=== PATIENT | male | born 1945 | race Caucasian/White ===

== ENCOUNTER 2018-10-08 15:41 | Emergency (ER) | payer BC, MEDICARE, OTHER ==
[2018-10-08] MEDS ORDERED: Lidocaine 1% w/Epinephrine 1:100K 20 ML VIAL ONE (16:11)
[2018-10-08] MEDS ORDERED: Tranexamic Acid 1,000 MG/10 ML VIAL SSP SCH (17:30)
[2018-10-08] MEDS ORDERED: Tranexamic Acid 1,000 MG/10 ML VIAL ONE (17:33)
== END 2018-10-08 17:51 | disposition home or self-care (01) ==
LOC: ERS 15:41
DX: S01.512A Laceration without foreign body of oral cavity, initial encounter (principal); E78.5 Hyperlipidemia, unspecified; I10 Essential (primary) hypertension; Z79.82 Long term (current) use of aspirin; Z79.899 Other long term (current) drug therapy; X58.XXXA Exposure to other specified factors, initial encounter
CPT/HCPCS: 99283; J2001

== ENCOUNTER 2019-08-24 10:57 | Inpatient (IN) | payer MEDICARE, BC, OTHER ==
[2019-08-24] MEDS ORDERED: Adacel (T-DAP) 0.5 ML SYRINGE ONE (11:25)
--- NOTE | 2019-08-24 11:37 | RAD ---
Exam:2 views left elbow HISTORY: Pain. Trauma. Fall. COMPARISON: None FINDINGS: No fracture. No cortical irregularity. No periosteal reaction. Joint spaces are preserved. No joint effusion. IMPRESSION: No fracture.
[2019-08-24] MEDS ORDERED: Ondansetron PF 4 MG/2 ML Vial ONE (11:44)
--- NOTE | 2019-08-24 11:47 | CT ---
Exam: CT cervical spine without contrast HISTORY: Trauma. Pain. COMPARISON: None FINDINGS: No craniocervical dissociation. Appropriate alignment of the lateral masses of C1 and C2. Intact odon toid process Appropriate alignment of the facets. Straightening of normal cervical lordosis may be due to patient position, muscle spasm or cervical co llar. Grade 1 anterolisthesis of C4 upon C5 likely due to degenerative changes of the facets. Soft tissue neck structures: No mass, lymphadenopathy or hematoma. No prevertebral soft tissue swelli ng. Upper mediastinum and lung apices: Unremarkable Central spinal canal: Varying degrees of central canal stenosis and neural foraminal narrowing on the basis of degenerative change. Vertebral bodies: Cervical spine vertebral body height is maintained. No fracture. IMPRESSION: 1. No fracture 2. Straightening of normal cervical lordosis as detailed above. If there is concern for ligamentous i njury, consider MRI. 3. Grade 1 anterolisthesis of C3-C4 upon C5, likely on the basis of facet arthropathy.
--- NOTE | 2019-08-24 11:50 | CT ---
Exam: Brain CT without IV contrast: HISTORY: Injury following a fall FINDINGS: There is some patchy subarachnoid hemorrhage involving the right temporal lobe region, primarily. No mass effect or midline shift. Left periorbital soft tissue swelling with abnormal fluid density within the left maxillary sinus with concern for possible orbital floor fracture. Minimal mucosal dis ease in the left sphenoid sinus. Several very tiny questionable air densities on the right and left supraorbital region, I cannot totally exclude the possibility of some tiny pneumocephalus. Temporal b ones appear intact. IMPRESSION: Right-sided primarily temporal subarachnoid hemorrhage. No mass or midline shift. Left periorbital so ft tissue swelling with possible orbital floor fracture with fluid in the left maxillary sinus as well as sinus mucosal change. Questionable possible tiny air densities overlying the right and left s upraorbital regions. Findings were discussed with Dr. Parson at 11:40 AM CODE CR
[2019-08-24] MEDS ORDERED: ISOVUE-370 76%-LOCM 1 ML ONE (12:00)
[2019-08-24 12:11] LABS: #Eosinphils 0.2 thou/uL (0.0-0.7); #Lymphocytes 1.8 thou/uL (1.20-3.40); #Monocytes 0.6 thou/uL (0.11-0.59); %Basophils 0.4 % (0.0-1.0); %Eosinophils 2.1 % (0.0-10.0); %Lymphocytes 15.3 % (21.0-51.0); %Monocytes 5.5 % (0.0-10.0); %Neutrophils 76.8 % (42.0-75.0); Hemoglobin 13.7 g/dL (14.0-18.0); Mean Corpuscular HGB CONC 35.4 g/dL (32.0-36.0); Mean Corpuscular Hemoglobin 33.1 pg (27.0-31.0); Mean Corpuscular Volume 93.6 fL (78.0-98.0); Mean Platelet Volume 8.2 fL (7.4-10.4); Platelet Count 327 thou/uL (130-400); RBC Distribution Width 13.4 % (11.5-14.5); Red Blood Cell (RBC) Count 4.13 mill/uL (4.70-6.10); White Blood Cell (WBC) Count 11.7 thou/uL (4.8-10.8)
--- NOTE | 2019-08-24 12:13 | RAD ---
PORTABLE CHEST 1 VIEW: Date: 08/24/19 Time: 1204 hours HISTORY: Trauma, unwitnessed fall, with loss of consciousness. FINDINGS: Comparison made with exam of 05/11/14. The heart size is normal. The aorta is tortuous. The lungs are well expanded without lobar consolidat ion, pneumothoraces, or pleural effusions. There are degenerative changes in the left shoulder joint. Postop changes of right rotator cuff repair are noted. IMPRESSION: No acute process. POS: TPC
--- NOTE | 2019-08-24 12:15 | CT ---
CT FACIAL BONES WITHOUT CONTRAST: HISTORY: Fall. Facial injury. FINDINGS: A tiny pocket of gas along the inner table of the right temporal bone is again demonstrated and florence r detailed on recent CT head. There are also tiny pockets of gas at the posterior apex of each orbit, possibly within veins or pneumatized osseous structure. No adjacent fracture is apparent. There is a tiny pocket of gas along the medial aspect of the left orbit, immediately adjacent to the lamina papyracea. Small adjacent soft tissue/fluid collection may represent hematoma. No displaced fr actures are apparent. Cortical irregularity of the base of the nasal bone with slight leftward deviation. Opacification of the left maxillary sinus is present with expansion into the left nasal passage. Hype rdensity suggests chronic mucosal disease. Postoperative changes are suspected. Mild mucosal thickeni ng of the right maxillary sinus. There is effacement of the left posterior pharynx at the level of the tonsils with a somewhat mass li ke appearance at the location of the left tonsil. IMPRESSION: 1. Evidence of disruption of the left lamina papyracea with a tiny pocket of medial orbit gas and sma ll hematoma. The osseous fracture is not directly visualized. Tiny pockets of gas within the superior aspect of each orbital apex. This could be venous rather than posttraumatic. No fractures are apparent at this level. 2. Mildly displaced nasal bone fracture, age indeterminate. 3. Mass like abnormality at the level of the left tonsil with effacement of the posterior pharyngeal airway. Please consider direct visualization of the posterior pharynx and eventual CT of the neck wit h intravenous contrast for better evaluation. 4. Atherosclerosis. POS: TPC
[2019-08-24 12:17] LABS: Prothrombin Time 13.4 SEC (12.0-14.7)
[2019-08-24 12:19] LABS: PTT 22.3 SEC (22.9-36.1)
[2019-08-24] MEDS ORDERED: Acetaminophen 500 MG TAB ONE (12:48)
[2019-08-24 13:06] LABS: ALT (SGPT) 25 U/L (8-55); AST (SGOT) 31 U/L (5-34); Albumin 4.4 g/dL (3.4-4.8); Alkaline Phosphatase 91 U/L (40-110); Anion Gap 13 mmol/L (10-20); BUN (Urea Nitrogen) 23 mg/dL (8.4-25.7); Bilirubin, Total 0.7 mg/dL (0.2-1.2); CK (CPK) 232 U/L (30-200); Calc. Creatinine Clearance 0 mL/min (70-130); Calcium 8.8 mg/dL (7.8-10.44); Carbon Dioxide 26 mmol/L (23-31); Chloride 107 mmol/L (98-107); Estimated GFR-MDRD 84; Glucose 127 mg/dL (83-110); Potassium 3.7 mmol/L (3.5-5.1); Protein, Total 6.4 g/dL (5.8-8.1); Sodium 142 mmol/L (136-145)
--- NOTE | 2019-08-24 13:47 | RAD ---
LEFT SHOULDER 3 VIEWS: Date: 08/24/19 HISTORY: Fall with injury. FINDINGS: There are prominent degenerative changes at the shoulder with spurring from the humeral head. There i s a linear lucency seen through the head of the humerus, which is indeterminate. I cannot completely exclude fracture, although there is no evidence of displacement. No definite cortical disruption is s een. The AC joint is normally aligned. IMPRESSION: Prominent degenerative changes of glenohumeral joint with spurring from the humeral head. A linear heather cency is seen through the humeral head and I cannot completely exclude a nondisplaced fracture. Consi anton further evaluation with CT or MRI. POS: OFF
--- NOTE | 2019-08-24 13:53 | HP ---
REQUESTING PHYSICIAN: Dr. Parson. ATTENDING SURGEON: Dr. Castillo. CONSULTATIONS: Neurosurgery, Dr. Reddy. HISTORY OF PRESENT ILLNESS: The patient is a 73-year-old man, who was moving things from his upstairs room when he was coming on the stairs and lost his footing and fell anywhere from 3 to 5 stairs hitting the left side of his head. The patient had loss of consciousness from 1 to 5 minutes. He was brought to the emergency department by ground EMS, where he underwent evaluation and examination and was noted to have a right-sided primarily temporal subarachnoid hemorrhage, which time we were asked to evaluate the patient for admission and obtain neurosurgical consultation. The patient's current chief complaint is headache. He denies nausea, vomiting, or dizziness. The patient denies any syncopal-type symptoms prior to his fall. He relates it to just losing his footing. ALLERGIES: NONE. CURRENT MEDICATIONS: 1. Baby aspirin 1 daily. 2. Celebrex. 3. Amlodipine. 4. Atorvastatin. PAST MEDICAL HISTORY: 1. Hypertension. 2. Hyperlipidemia. PAST SURGICAL HISTORY: 1. Eyelid repair. 2. Left inguinal hernia repair. SOCIAL HISTORY: The patient lives independently at home with his spouse. He is retired from [employer]. He smoked greater than 20 years ago. He drinks 1 to 2 drinks every 2 to 3 days. He denies daily drinking. REVIEW OF SYSTEMS: A 10-point review of systems is negative unless otherwise stated. PHYSICAL EXAMINATION: VITAL SIGNS: Blood pressure 170/75, heart rate 78, respirations 17, oxygen saturation 98% on room air, temperature is 98.3. GENERAL: The patient is resting comfortably in bed. He is awake, alert, and oriented. He is repetitive in some of his questions. Rani Coma Scale is 15. HEENT: Head is normocephalic. The patient has abrasion and contusion to left side of his forehead. Eyes; extraocular motion is intact. PERRLA bilaterally. The patient has lateral periorbital ecchymosis on the left eye. Ears are atraumatic without discharge. Nose; there is dry blood in both nares. Oropharynx is clear. NECK: Nontender. Trachea is midline. No JVD. The patient was able to be cleared out of his pre-hospital collar. CHEST: Clear to auscultation with good inspiratory and expiratory effort. HEART: Regular rate and rhythm. ABDOMEN: Soft, flat, and nontender with active bowel sounds. EXTREMITIES: Neurovascularly intact x4. Left upper extremity has skin tears noted to the left lateral proximal forearm area. This is just distal to his elbow. The patient has tenderness to palpation to the left anterior shoulder. He does have good range of motion. His clavicle appears intact. BACK: Atraumatic and nontender. LABORATORY FINDINGS: White blood cell count 11.7, hemoglobin 13.7, hematocrit 38.7, platelets 327. Troponin is less than 0.010. PT 13.4, INR 1.0, PTT 22.3. The remainder of his chemistries are pending. RADIOGRAPHIC REPORT: CT of the brain without contrast shows a right-sided primarily temporal subarachnoid hemorrhage. There is no mass or midline shift. Left soft tissue swelling in the periorbital region. CT of the C-spine without contrast shows no fracture. No other acute findings are noted. CT of the face without contrast shows: 1. Evidence of disruption of the left lamina papyracea with a tiny pocket of medial orbital gas and small hematoma. 2. Mild displaced nasal bone fracture, age indeterminate. AP chest x-ray shows no acute process. Views of the left elbow show no fracture. ASSESSMENT: 1. Status post fall. 2. Right-sided subarachnoid hemorrhage. 3. Left shoulder contusion. 4. Skin tear, left upper extremity. 5. History of hypertension and hyperlipidemia. PLAN: Plan will be to admit the patient to the [facility] for serial neuro exams. Per consultation with Neurosurgery, he will have q.2-hour neuro checks with a repeat head CT in the morning or sooner as needed. The patient will allow to have clear liquid diet and nonnarcotic pain medication. The evaluation, examination, laboratory, and radiographic findings were discussed with Dr. Castillo after this dictation. Job ID: [id number]
[2019-08-24] MEDS ORDERED: Ondansetron ODT 4 MG TAB PO PRN (14:20)
[2019-08-24] MEDS ORDERED: Cyclobenzaprine 10 MG TAB PO PRN (14:20)
[2019-08-24] MEDS ORDERED: hydrALAZINE 20 MG/ML VIAL SLOW IVP PRN (14:20)
[2019-08-24] MEDS ORDERED: Dextrose 50% Abboject 50 ML SYRINGE SLOW IVP PRN (14:20)
[2019-08-24] MEDS ORDERED: traMADol HCl 50 MG TAB PO PRN (14:20)
[2019-08-24] MEDS ORDERED: Dextrose 5% in Water 1,000 ML IV PRN (14:20)
[2019-08-24] MEDS ORDERED: Ondansetron PF 4 MG/2 ML Vial IVP PRN (14:20)
--- NOTE | 2019-08-24 15:20 | CT ---
Exam: Postcontrast soft tissue neck CT HISTORY: Evaluate left peritonsillar mass. Status post trauma and fall. COMPARISON: None Correlation: Facial bone CT 08/07/2019 FINDINGS: There is evidence of left periorbital and left facial/scalp post traumatic hematoma. There is hyperattenuation of the left maxillary sinus. Symmetric attenuation the optic nerves and ocu lar rectus muscles There is evidence of paranasal sinus disc disease as described in the maxillofacial CT report There is stranding of the fat in the left piriform. Left parapharyngeal fat. There appears to be sym metric attenuation the adjacent pterygoid muscles. Stranding of the fat is of uncertain etiology. Evaluation is limited due to motion and dental amalgam artifact. No obvious masses within the oral ca vity. Midline fatty raphae of the tongue is preserved. Epiglottis has a normal caliber. Preepiglottic fat is preserved Symmetric attenuation of the parotid and submandibular glands Symmetric attenuation of the sternocleidomastoid muscles and paraspinal muscles Grossly the great vessels of the neck are patent. No evidence of fracture Upper mediastinum and lung apices are unremarkable IMPRESSION: Stranding of the left parapharyngeal fat is difficult to evaluate in part due to motion a nd dental amalgam artifact. At this time, stranding is presumed to be posttraumatic. Other etiologies cannot be entirely excluded and consider pre and postcontrast soft tissue neck MRI on a no nemergent basis. A conservative measure, direct visualization can be performed.
[2019-08-24 16:02] VITALS: BMI 24.0
[2019-08-24] MEDS: Sodium Chloride 0.9% 1,000 ML IV SCH (16:25)
[2019-08-24] MEDS: Acetaminophen 500 MG TAB PO SCH ×2 (18:26→22:24)
[2019-08-24] MEDS: Famotidine 20 MG TAB PO SCH (21:11)
[2019-08-24] MEDS ORDERED: [UNRECOGNIZED DRUG - REMARK] FS SCH (21:30)
--- NOTE | 2019-08-24 23:17 | CON ---
DATE OF CONSULTATION: This is Oleg Balderas PA-C dictating a report for Alfredo Reddy MD. This is a 50-minute initial patient evaluation, of which greater than 50% of the exam was spent counseling and coordinating the patient's care. Remainder of the exam was spent in review of the patient's medical records and formulation of treatment plan, as well as review of appropriate imaging studies. CHIEF COMPLAINT: Status post fall with small traumatic right parietal subarachnoid hemorrhage. HISTORY OF PRESENT ILLNESS: Mr. Enriquez is a very pleasant 73-year-old male, presents to [facility] as a trauma. Apparently, the patient was carrying some objects down a flight of stairs and lost his footing and then ultimately struck the left side of his head on a tile floor. He was brought to the emergency room and head CT shows some left-sided sinus fractures as well as a right traumatic subarachnoid hemorrhage, likely contrecoup injury. The patient is on 81 mg aspirin for cardiac prevention, but otherwise is not on any blood thinners. He is very healthy. He lives at home with his . He does not use tobacco. He does have significant facial pain and headache and did have some concussive-like symptoms and that he was repeating himself. There was probable loss of consciousness according to the patient's , who found him down. The patient again is amnestic to the events. He does not complain of any neck pain and his cervical spine CT is negative for fracture. PHYSICAL EXAMINATION: The patient is awake, alert, and appropriate. GCS is 15. He does have some ecchymosis on the left side of his face and a small left temporal region scalp hematoma. He has no tenderness to cervical spine. He has excellent strength in all the extremities with intact sensation to light touch throughout. His pupils are equal, round, and reactive bilaterally. He does not appear to have any nystagmus on exam. IMPRESSION/DIAGNOSIS: Status post fall with traumatic right subarachnoid hemorrhage in the parietal region. PLAN: At this time, our trauma colleagues will graciously admit the patient. We will plan for repeat head CT in the morning, sooner should the patient's neurologic status decline. We will hold his aspirin. Should his CT scan be stable, we will plan for repeat head CT in 1 month in our office. I have discussed with the patient's that his hemorrhage does not require neurosurgical intervention at this time, and they are appreciative. We would like his head of bed to be raised at 30. He may be on a clear liquid diet. He needs q.2 hour neuro checks, of which I have ordered. Please call me with any changes in the patient's neurologic status, otherwise Neurosurgery will follow up after head CT in the morning. Job ID: [id number]
[2019-08-25 06:51] LABS: #Eosinphils 0.1 thou/uL (0.0-0.7); #Lymphocytes 1.2 thou/uL (1.20-3.40); #Neutrophils 6.9 thou/uL (1.40-6.50); %Basophils 0.5 % (0.0-1.0); %Eosinophils 1.2 % (0.0-10.0); %Lymphocytes 12.5 % (21.0-51.0); %Monocytes 10.9 % (0.0-10.0); Hemoglobin 12.4 g/dL (14.0-18.0); Mean Corpuscular HGB CONC 33.4 g/dL (32.0-36.0); Mean Corpuscular Hemoglobin 31.8 pg (27.0-31.0); Mean Corpuscular Volume 95.1 fL (78.0-98.0); Mean Platelet Volume 7.8 fL (7.4-10.4); Platelet Count 442 thou/uL (130-400); RBC Distribution Width 13.4 % (11.5-14.5); White Blood Cell (WBC) Count 9.2 thou/uL (4.8-10.8)
[2019-08-25] MEDS: Acetaminophen 500 MG TAB PO SCH ×4 (06:51→20:40)
[2019-08-25] MEDS: Sodium Chloride 0.9% 1,000 ML IV SCH (07:08)
[2019-08-25 07:09] LABS: Anion Gap 13 mmol/L (10-20); BUN (Urea Nitrogen) 11 mg/dL (8.4-25.7); Calc. Creatinine Clearance 90 mL/min (70-130); Calcium 8.6 mg/dL (7.8-10.44); Carbon Dioxide 26 mmol/L (23-31); Chloride 107 mmol/L (98-107); Estimated GFR-MDRD Greater than 90; Glucose 117 mg/dL (83-110); Potassium 3.5 mmol/L (3.5-5.1); Sodium 142 mmol/L (136-145)
--- NOTE | 2019-08-25 08:08 | CT ---
PRELIMINARY REPORT/[facility]/EMERGENCY AFTER HOURS PROCEDURE: PROCEDURE INFORMATION: Exam: CT Head Without Contrast Exam date and time: 08/25/2019 5:51 AM Clinical history: 73 years old, male; Altered mental status/memory loss; Patient HX: AMS, f/u sdh TECHNIQUE: Imaging protocol: Computed tomography of the head without contrast. COMPARISON: No relevant prior studies available. FINDINGS: Brain: Several areas of apparent hemorrhagic contusion in the right temporal lobe. Small amounts of s urrounding edema. The largest posteriorly measures up to 2.5 cm in diameter. Suspect a very small amount of right to left midline shift, measuring about 2 mm. Very small subdural hematoma in the left frontal region, maximum thickness only 2-3 mm. Suspect small amounts of subarachnoid blood in the right temporal region, and possibly the left frontal region. No definite acute infarct by CT. Ventricles: Ventricle size is normal for age. Bones/joints: No definite acute skull fracture. Sinuses: Complete opacification of the included upper left maxillary sinus. Mild mucosal thickening i n the ethmoid, right maxillary, and left aspect of the sphenoid sinus. Mastoid air cells: No significant acute finding. Soft tissues: Evidence for soft tissue injury/scalp hematoma in the left frontal/parietal region. Lef t periorbital soft tissue swelling. IMPRESSION: 1. Several areas of apparent hemorrhagic contusion in the right temporal lobe, details above. 2. Suspect a very small amount of right to left midline shift, measuring about 2 mm. 3. Very small subdural hematoma in the left frontal region, maximum thickness only 2-3 mm. 4. Suspect small amounts of subarachnoid blood in the right temporal region, and possibly the left fr ontal region. 5. Eventual comparison with any available prior exams will be helpful. 6. No definite acute infarct by CT. 7. Other details/findings discussed above. Thank you for allowing us to participate in the care of your patient. Dictated and Authenticated by: Alfonso Wong MD 08/25/2019 6:24 AM Central Time ([place] & [place]) FINAL REPORT: EMERGENT AFTER HOURS NONCONTRAST CT HEAD: HISTORY: Follow-up intracranial hemorrhage. Altered mental status/memory loss. COMPARISON: 08/24/2019. IMPRESSION: 1. Areas of subarachnoid hemorrhage are again seen in the right temporal lobe. However, there has bee n interval development of several areas of hemorrhagic contusion/parenchymal hematomas in the right temporal lobe with largest area of hemorrhage in the right temporal lobe measuring 2.6 cm. A small am ount of adjacent edema is present. 2. Tiny left anterior subdural hematoma measuring 2 to 3 mm in maximal AP dimensions. 3. Approximately 2 mm of shift of the midline structures to the left. 4. Left lateral frontoparietal scalp hematoma with small left periorbital subcutaneous soft tissue sw elling. 5. Hemorrhage in the left maxillary antrum with mucosal thickening seen throughout the ethmoidal air cells bilaterally as well as involving the left frontal sinus, right maxillary antrum, and left sphenoid sinus. 6. Punctate focus of gas in the region of the right orbital apex seen on prior CT facial bones, but i mproved from that exam. Subtle facial bone fractures are better seen and described on CT of the facial bones obtained on 08/24/2019. 7. Findings are in agreement with the report by ALETHA. Transcribed Date/Time: 08/25/2019 8:49 AM
[2019-08-25] MEDS: Famotidine 20 MG TAB PO SCH ×2 (09:52→20:40)
[2019-08-25] MEDS: Amlodipine 5 MG TAB PO SCH (09:53)
--- NOTE | 2019-08-25 10:40 | PRG ---
DATE OF SERVICE: 08/25/2019 This is a 30-minute initial hospital visit note, in which 30 minutes was spent reviewing the imaging record, evaluation, and examination of the patient, formulation of plan. Greater than 50% time was spent in counseling on Akil Enriquez. I reviewed the notes of my colleague, Oleg HODGE and reviewed his content. Mr. Enriquez is a very pleasant 73-year-old gentleman, who fell yesterday and struck his face. He takes a baby aspirin for cardiac protection. He sustained a left lateral orbital wall fracture with trace traumatic subarachnoid hemorrhage. This morning, repeat head CT demonstrates contrecoup right temporal lobe cerebral contusions. He is neurologically intact and while he has periorbital ecchymoses consistent with raccoon eyes given the basilar skull region involvement. He again really has no complaints. I have recommended a repeat head CT in the morning and to watch him another night. He is currently in the IMCU. Should he be doing well and meeting criteria, I would be fine with dismissal tomorrow. He is to stay off his aspirin and his Celebrex for 1 month. I will see him in 1 month with a repeat head CT. We have given them a card and gone over do's and don'ts in the recovery period. DIAGNOSIS: Cerebral contusion with traumatic subarachnoid hemorrhage and skull fracture, status post fall. Job ID: [id number]
[2019-08-25] MEDS: Bacitracin Zinc Ointment 30 gm TUBE TOP SCH (11:38)
[2019-08-25] MEDS ORDERED: Loratadine 10 MG TAB PO PRN (12:23)
--- NOTE | 2019-08-25 12:29 | PRG ---
DATE OF SERVICE: 08/25/2019 This is a 10-minute subsequent patient evaluation, in which greater than 50% of the exam was spent in counseling and coordinating the patient's care. Remainder of the exam was spent in review of the patient's medical records and review of appropriate imaging studies. Mr. Enriquez is hospital day #1, having sustained a fall at home, experiencing right traumatic subarachnoid hemorrhage. He is on 81 mg aspirin. Review of the patient's head CT from today shows some blossoming and development of right temporal and right parietal intraparenchymal hemorrhages. This does not cause any mass effect or midline shift. The patient is neurologically intact. He states he does continue to have a headache on the left side and some facial pain, but otherwise is being treated with tramadol. He feels very sore all over. He denies any new weakness. He has excellent strength in all the extremities. GCS is 15. Pupils are equal, round, and reactive bilaterally. He has some continued ecchymosis around the bilateral eyes, worse on the left than the right and a mild left scalp contusion. Given the new development of intraparenchymal hemorrhage, we have asked that the patient remain in the ICU for close neurologic observation with q.2-hour neuro checks. We ordered a repeat head CT in the morning. Should this be stable, Neurosurgery will sign off. The patient will follow up with our office in 1 month with a repeat head CT at that time on an outpatient basis. He may continue with a clear liquid diet. We will also attempt to update his via phone call. Please call with any changes in the patient's neurologic status. Otherwise, we will follow up in the morning. Job ID: [id number]
--- NOTE | 2019-08-25 13:15 | PRG ---
DATE OF SERVICE: 08/25/2019 SUBJECTIVE: The patient remains in the IMCU status post ground level fall, in which he sustained subarachnoid hemorrhage. The patient overnight had no issues. He worked with Physical Therapy yesterday, did well enough. They discharged him to the walking program. This morning, he is awake, alert, and oriented x3. His Rani Coma Scale is 15. He states that his headache is better controlled today. OBJECTIVE: VITAL SIGNS: Temperature is 98.2, heart rate 82, blood pressure 154/83, respirations 21, oxygen saturation 100% on room air. GENERAL: The patient just returned from the walking program. He did not require any assistance. He was walking steady. He had a normal gait. HEENT: Head; the patient now has bilateral periorbital ecchymoses consistent with his basilar skull fracture. Otherwise, remainder of his HEENT is unremarkable. LUNGS: Clear to auscultation with good inspiratory and expiratory effort. HEART: Regular rate and rhythm. ABDOMEN: Soft, flat, and nontender with active bowel sounds. EXTREMITIES: Neurovascularly intact x4. Skin tears are scabbed over without any signs of infection. LABORATORY FINDINGS: White blood cell count 9.2, hemoglobin 12.4, hematocrit 37.1, platelets 442. Sodium 142, potassium 3.5, chloride 107, CO2 of 26, BUN 11, creatinine 0.80, glucose 117. RADIOGRAPHIC FINDINGS: CT of the brain without contrast shows areas of subarachnoid hemorrhage and interval development of several areas of hemorrhagic contusion/parenchymal hematomas in the right temporal lobe with the largest area of hemorrhage at the right temporal lobe measuring 2.6 cm. There is a tiny left anterior subdural hematoma measuring 2 to 3 mm at maximal AP dimensions and approximately 2 mm of shift of midline structures. ASSESSMENT: 1. Status post fall downstairs. 2. Intracerebral hemorrhage as noted above. 3. Orbital floor and basilar skull fracture. 4. Multiple contusions. 5. Left upper extremity skin tear. 6. History of hypertension and hyperlipidemia. PLAN: Plan will be to continue supportive care. Per discussion with Neurosurgery, the patient will remain on the IMCU overnight with continued neuromonitoring. Continue clear liquid diet and repeat head CT in the morning or sooner if indicated. Per Neurosurgery, the patient will need to stay off his aspirin and Celebrex for 1 month, and they will see him again in 1 month as long as everything goes well overnight. The evaluation and examination were done with Dr. Castillo this morning. After discussion with the who reports that the patient is a "bleeder", Dr. Castillo instructed that the patient be given 1 unit of platelets. Job ID: [id number]
[2019-08-25] MEDS ORDERED: Melatonin 3 MG TAB PO ONE (21:30)
--- NOTE | 2019-08-26 05:06 | PRG ---
DATE OF SERVICE: 08/26/2019 SUBJECTIVE: Mr. Enriquez is a 73-year-old male status post fall from one-step stair. He sustained intracranial hemorrhage. This has been stable on CT scan. The patient's mental status and Neurology are stable. The patient has been working with PT/OT. His urine is adequate. His vital signs are stable. He complained no headache, nausea, or vomiting. OBJECTIVE: GENERAL: Currently, the patient is lying on bed comfortable, with no acute distress. VITAL SIGNS: Stable. LUNGS: Clear bilaterally. HEART: Regular rate and rhythm. NEUROLOGY: GCS 15. Oriented x3. No focal neurologic deficits. PLAN: Continue supportive care. Continue pain control. The patient to continue working with PT/OT. Anticipate transfer to the floor or go home today. Job ID: [id number]
[2019-08-26] MEDS: Acetaminophen 500 MG TAB PO SCH (05:52)
[2019-08-26 07:29] VITALS: TEMP 99
--- NOTE | 2019-08-26 07:54 | CT ---
PRELIMINARY REPORT/[facility]/EMERGENCY AFTER HOURS PROCEDURE PROCEDURE INFORMATION: Exam: CT Head Without Contrast Exam date and time: 08/26/2019 5:40 AM Clinical history: 73 years old, male; Condition or disease; Patient HX: F/u tsah and iph TECHNIQUE: Imaging protocol: Computed tomography of the head without contrast. COMPARISON: CT Brain WO Con 08/25/2019 5:51 AM FINDINGS: Brain: Redemonstrated are 2 right temporal lobe parenchymal hematomas which are essentially unchanged from prior measuring 2.5 cm anteriorly and 2.5 cm posteriorly. Stable right temporal lobe subarachnoid hemorrhage is also noted. Midline shift: There is no significant midline shift. Ventricles: Normal. No ventriculomegaly. Bones/joints: Unremarkable. No acute fracture. Sinuses: There is opacification of the left maxillary sinus, incompletely visualized but probably sales representative business courses of hemorrhage, unchanged. Mastoid air cells: Visualized mastoid air cells are well aerated. Soft tissues: Unremarkable. IMPRESSION: Stable right temporal lobe parenchymal hematomas and subarachnoid hemorrhage. Thank you for allowing us to participate in the care of your patient. Dictated and Authenticated by: Alfonso Cxo MD 08/26/2019 6:01 AM Central Time ([place] & [place]) FINAL REPORT Exam: Head CT without contrast HISTORY: Fall. Intracranial hemorrhage. COMPARISON: 08/25/2019 FINDINGS: Hemorrhage: Redemonstration of extensive intraparenchymal and extra-axial hemorrhage. Brain parenchyma: Stable right to left subfalcine herniation.No new areas of parenchymal hemorrhage. Ventricular system: Ventricles and sulci are patent and symmetric. Calvarium: Intact. Sinuses and mastoid air cells: Adequate aeration. IMPRESSION: 1. This report is in agreement with the preliminary report by [facility]. 2. Stable right temporal lobe intraparenchymal hemorrhages. Stable extra-axial hematoma along the fal x, right tentorium and right transverse sinus. Transcribed Date/Time: 08/26/2019 7:57 AM
[2019-08-26 08:19] LABS: Phosphorus 2.3 mg/dL (2.3-4.7)
[2019-08-26] MEDS: Amlodipine 5 MG TAB PO SCH (08:39)
[2019-08-26] MEDS: Bacitracin Zinc Ointment 30 gm TUBE TOP SCH (08:42)
[2019-08-26 08:43] VITALS: BP 144/73
[2019-08-26] MEDS ORDERED: Non-Formulary Item 1 EACH (Glucos Sul 2kcl/Msm/Chond/C/Mn [Glucosamine Chondroitin Cap] 1 PO SCH (09:00)
[2019-08-26] MEDS ORDERED: Non-Formulary Item 1 EACH (Omeprazole [Omeprazole] 40 MG) PO SCH (09:00)
[2019-08-26] MEDS ORDERED: GLUCOSAMINE CHONDROITIN PO SCH (09:00)
[2019-08-26] MEDS ORDERED: Atorvastatin Calcium 40 MG TAB PO SCH (09:00)
[2019-08-26] MEDS ORDERED: Non-Formulary Item 1 EACH (Multivitamin [Multivitamins] 1 CAP) PO SCH (09:00)
[2019-08-26] MEDS ORDERED: Multivit, Therapeutic 1 TAB PO SCH (09:00)
[2019-08-26] MEDS ORDERED: Lactinex Tablet PO SCH (09:00)
[2019-08-26] MEDS ORDERED: SAW PALMETTO 160 MG PO SCH (09:00)
[2019-08-26] MEDS ORDERED: Non-Formulary Item 1 EACH (Lactobacillus Acidophilus [Probiotic] 1 CAPSULE) PO SCH (09:00)
--- NOTE | 2019-08-26 20:33 | DIS ---
DATE OF ADMISSION: 08/25/2019 DATE OF DISCHARGE: 08/26/2019 ADMITTING DIAGNOSES: 1. Mechanical fall down 3 to 5 steps. 2. Right temporal subarachnoid hemorrhage. 3. Basilar skull fracture and right-sided orbital floor fracture. DISCHARGE DIAGNOSES: 1. Mechanical fall down 3 to 5 steps. 2. Right temporal subarachnoid hemorrhage. 3. Basilar skull fracture and right-sided orbital floor fracture. CONSULTING PHYSICIAN: Dr. Reddy of Neurosurgery. PROCEDURES: None. HOSPITAL COURSE: The patient is a 73-year-old male who presented to the emergency department after a mechanical fall on aspirin. The patient was found to have a right temporal subarachnoid hemorrhage as well as basilar skull fracture and right orbital floor fracture. He was admitted to the [facility] with q.2 hour neuro checks and close monitoring. He received a repeat head CT, which demonstrated a stable exam. Dr. Reddy of Neurosurgery evaluated the patient and recommended holding the patient's aspirin and Celebrex for one month with a followup CT in 1 month. The patient did receive 1 unit of platelets during this hospital admission. He was evaluated by Physical and Occupational Therapy who reported it was safe to discharge the patient home. He also received a cognitive evaluation by Speech Language Pathology and they reported good results as well. At the time of discharge, the patient was tolerating regular diet. Pain was well controlled. GCS was 15 and he was voiding without issues. He was discharged to home under the care of his . DISCHARGE CONDITION: Satisfactory. PHYSICAL EXAMINATION: GENERAL: Well-appearing elderly male, sitting up in bed with no signs of acute distress. PULMONARY: Equal chest rise and fall. Clear breath sounds bilaterally. No signs of acute respiratory distress. CARDIAC: Regular rate and rhythm. No murmurs, gallops, or rubs. GASTROINTESTINAL: Abdomen is soft, nontender, nondistended. EXTREMITIES: 2+ pulses in all extremities. Gross motor and sensation are intact. NEUROLOGIC: GCS is 15. Pupils equal, round, reactive to light. HEAD: Bilateral raccoon eyes. DISCHARGE INSTRUCTIONS: The patient was discharged home. Activity as tolerated. Regular diet with no restrictions. No therapy or equipment needs. No IV therapy instructions. DISCHARGE MEDICATIONS: Included: 1. Tylenol. 2. Atorvastatin. 3. Probiotics. 4. Omeprazole. 5. Tramadol 50 mg p.o. q.6 hours x1 week for a total of 28 tablets. 6. Amlodipine. 7. Glucosamine chondroitin. 8. Saw palmetto. FOLLOWUP APPOINTMENTS: The patient is to follow up in [address] Reddy of Neurosurgery with a repeat head CT. There is no followup needed with Trauma Surgery. This is merely a summary of the patient's hospitalization. For full details, please see his medical record in its entirety. Job ID: [id number]
--- NOTE | 2019-08-27 06:29 | PQF ---
[facility] [id number] JAMES NOEL [id number] CLINICAL DOCUMENTATION CLARIFICATION FORM: POST DISCHARGE Addendum to original discharge summary date: ____ Late entry note date: __ DATE: 08/27/19 ATTN: David Rutledge Please exercise your independent, professional judgment in responding to the clarification form. Clinical indicators are provided on the bottom of this form for your review Please check appropriate box(s): [ ] Traumatic Cerebral edema / Vasogenic edema [ ] Non-traumatic Cerebral edema / Vasogenic edema [ ] Traumatic Compression of brain [ ] Non-traumatic Compression of brain [ ] Other diagnosis [ ] Unable to determine In addition, please specify: Present on Admission (POA): [ ] Yes [ ] No [ ] Unable to determine For continuity of documentation, please document condition throughout progress notes and discharge summary. Thank You. CLINICAL INDICATORS - SIGNS / SYMPTOMS / LABS H&P p1 08/24 lost his footiing and fell anywhere from 3-5 stars hitting the left side of his head H&P p1 08/24 The patient had loss of consciousness from 1-5mins H&P p1 08/24 current medication : Baby aspirin [address] Brain p1 08/25 Findings: Severeal areas of apparent hemorrhagic contusion in the R temporal lobe CT Brain p1 08/25 Findings: Small amount of surrounding edema. Suspect a very small amount of right to left midline shift RISK FACTORS H&P p1 08/24 73-year-old Man H&P p3 08/24 Right sided subarachnoid hemorrhage TREATMENTS: H&P p3 08/24 Q2-hour neuro checks H&P p3 08/[address] head Neuro Cosult Dr Reddy (This form is maintained as a part of the permanent medical record) 2014 [employer] All Rights Reserved [email or web address] [not provided] MTDD
== END 2019-08-26 12:39 | disposition home or self-care (01) | DRG 87 ==
LOC: ERS 10:57 → ERHOLD 12:11 → INTOOBSV 12:11 → IMCU/EMU 15:35 → OBSVTOIN 08-25 08:40
PROVIDERS: ADMIT Surgery; ATTEND Surgery
PROC: 3E0234Z Introduction of Serum, Toxoid and Vaccine into Muscle, Percutaneous Approach (ICD-10-PCS; principal; 2019-08-25)
PROC: 30233R1 Transfusion of Nonautologous Platelets into Peripheral Vein, Percutaneous Approach (ICD-10-PCS; 2019-08-25)
DX: S06.6X1A Traumatic subarachnoid hemorrhage with loss of consciousness of 30 minutes or less, initial encounter (principal); S02.102A Fracture of base of skull, left side, initial encounter for closed fracture; S02.842A Fracture of lateral orbital wall, left side, initial encounter for closed fracture; E78.5 Hyperlipidemia, unspecified; I10 Essential (primary) hypertension; S40.012A Contusion of left shoulder, initial encounter; W10.9XXA Fall (on) (from) unspecified stairs and steps, initial encounter; R40.2362 Coma scale, best motor response, obeys commands, at arrival to emergency department; R40.2142 Coma scale, eyes open, spontaneous, at arrival to emergency department; R40.2252 Coma scale, best verbal response, oriented, at arrival to emergency department; Z79.899 Other long term (current) drug therapy; Z79.82 Long term (current) use of aspirin; Z23 Encounter for immunization
CPT/HCPCS: 36415; 36430; 70450; 70486; 70491; 71045; 72125; 80048; 80053; 82550; 83735; 84100; 84484; 85025; 85610; 85730; 86850; 86900; 86901; 90471; 90715; 93005; 96361; 96374; G0390; J2405; P9035; Q9966

== ENCOUNTER 2019-09-12 12:56 | Outpatient (CLI) | payer MEDICARE, BC, OTHER ==
--- NOTE | 2019-09-12 13:18 | CT ---
HEAD CT WITHOUT CONTRAST: HISTORY: Metastatic subdural hemorrhage. Followup. COMPARISON: 08/26/2019. FINDINGS: Hemorrhage: No new intraparenchymal hemorrhage or new extra-axial hematoma. Interval resolution of pr eviously noted right temporal lobe hemorrhagic contusion. Interval resolution of subarachnoid blood along the tentorium. Brain parenchyma: Loss of smiley-white matter differentiation of the right temporal lobe. The remainder of the cerebrum demonstrates preservation of smiley-white matter differentiation. Ventricular system: Ventricles and sulci are patent and symmetric. Calvarium: Intact. Sinuses and mastoid air cells: Bilateral maxillary sinus mucosal disease. IMPRESSION: Expected evolutionary changes involving a right temporal lobe parenchymal hematoma. No new parenchyma l hemorrhage. Transcribed Date/Time: 09/12/2019 1:22 PM
== END 2019-09-12 12:57 | disposition home or self-care (01) ==
LOC: TBSIIMAG 12:56
PROVIDERS: ATTEND Surgery
DX: S06.5X0A Traumatic subdural hemorrhage without loss of consciousness, initial encounter (principal); W19.XXXA Unspecified fall, initial encounter
CPT/HCPCS: 70450

== ENCOUNTER 2020-03-01 20:32 | Emergency (ER) | payer MEDICARE, BC, OTHER | END 2020-03-02 00:14 | disposition home or self-care (01) | LOC: ERS 20:32 | DX: S01.512A Laceration without foreign body of oral cavity, initial encounter (principal); I10 Essential (primary) hypertension; E78.5 Hyperlipidemia, unspecified; Z79.82 Long term (current) use of aspirin; Z87.891 Personal history of nicotine dependence; Z79.899 Other long term (current) drug therapy; W50.3XXA Accidental bite by another person, initial encounter | CPT/HCPCS: 99282 ==